=== PATIENT | female | born 1970 | race Caucasian/White ===

== ENCOUNTER 2022-02-21 14:13 | Emergency (ER) | payer BC ==
--- NOTE | 2022-02-21 14:52 | XRAY Report ---
PROCEDURE: Ankle 3 View LT INDICATIONS: Trauma TECHNIQUE: 3 views of the ankle were acquired. COMPARISON: None FINDINGS: Bones: No fractures or dislocations. Ankle mortise is normally aligned. No suspicious bony lesions . Soft tissues: No tibiotalar joint effusion. Achilles tendon appears normal. Amorphous soft tissue calcification noted in the mid Achilles tendon. Plantar and posterior calcaneal spur noted as well. IMPRESSION: 1. No evidence of fracture or foreign body 2. Amorphous calcification in the Achilles tendon may reflect prior injury or calcific tendinitis. 3. Calcaneal spurs Reviewed by: Max Sy MD on 02/21/2022 1:50 PM [facility] Approved by: Max Sy MD on 02/21/2022 1:50 PM [facility] Station ID: [id number]
--- NOTE | 2022-02-21 15:41 | ED Physician Documentation ---
History of Present Illness - Stated complaint Stated Complaint: L ANKLE INJ - Chief complaint Chief Complaint: Trauma Ext - History obtained from History obtained from: Patient - History of Present Illness Timing: Today Pain level max: 7 Pain level now: 5 - Additonal information Additional information: 51-year-old female was walking around [place] today when she excellently stepped in a hole. [place] a pop. Has pain in the posterior aspect of her calf near the Achilles insertion. Worse with movement, better with rest. Review of Systems Constitutional: denies: Fever Musculoskeletal: denies: Neck pain Neurologic: denies: Headache PD PAST MEDICAL HISTORY - Past Medical History Past Medical History: Yes Psych: Depression - Present Medications Home Medications: Ambulatory Orders Medication Instructions Recorded Confirmed Semaglutide [Ozempic] 1 mg SQ OAW 02/21/22 02/21/22 Venlafaxine ER [Effexor ER] 75 mg PO DAILY 02/21/22 02/21/22 - Allergies Allergies/Adverse Reactions: Allergies Allergy/AdvReac Type Severity Reaction Status Date / Time No Known Drug Allergies Allergy Verified 02/21/22 14:20 PD ED PE NORMAL - Vitals Vital signs reviewed: Yes - General General: Alert and oriented X 3, No acute distress, Well developed/nourished - HEENT HEENT: Moist mucous membranes - Neck Neck: Supple, no meningeal sign - Derm Derm: Warm and dry - Extremities Extremities: Other (No tenderness about the lateral or medial malleolus of the left ankle. There is slight tenderness along the Achilles tendon, the tendon appears intact on examination. Squeezing the calf results in downward flexion of the toes and foot. Neurovascular intact.) - Neuro Neuro: Alert and oriented X 3 - Psych Psych: Normal mood, Normal affect Results - Vitals Vitals: Vital Signs - 24 hr 02/21/22 02/21/22 14:16 15:54 Temperature 36.4 C L 36.7 C Heart Rate 88 78 Respiratory 16 20 Rate Blood Pressure 138/103 H 133/98 H O2 Saturation 97 94 Oxygen O2 Source Room air - Rads (name of study) Left ankle x-ray Radiology: Final report received, EMP read contemporaneously, See rad report Procedures - Splint (location) Left lower extremity Splint applied by: Physician, Tech Type of splint: Fiberglass, Short leg, Posterior Other: Patient tolerated well, No complications, Neurovascular intact, Crutches provided PD MEDICAL DECISION MAKING - ED course Complexity details: reviewed results, re-evaluated patient, considered differential, d/w patient ED course: 51-year-old female with what appears to be an Achilles tendon strain. Could be a partial tear as well. Placed in a short leg posterior splint and given crutches. Declines pain medication here or for home. Neurovascular intact. No acute findings on x-ray. Patient counseled regarding signs and symptoms for which I believe and urgent re-evaluation would be necessary. Patient with good understanding of and agreement to plan and is comfortable going home at this time This document was made in part using voice recognition software. While efforts are made to proofread this document, sound alike and grammatical errors may occur. IMPRESSION: 1. No evidence of fracture or foreign body 2. Amorphous calcification in the Achilles tendon may reflect prior injury or calcific tendinitis. 3. Calcaneal spurs Departure - Departure Disposition: Home, Self Care Clinical Impression: Strain of left Achilles tendon Qualifiers: Encounter type: initial encounter Qualified Code(s): S86.012A - Strain of left Achilles tendon, initial encounter Condition: Good Instructions: Achilles Tendonitis Follow-Up: Jennifer Peterson PA-C [Primary Care Provider] - [facility] [Provider Group] - Within 1 week Comments: You can use Motrin or Tylenol as needed for pain at home. Your x-ray does not s how any acute abnormalities. Stay in the splint until released by orthopedics. You could have an Achilles tendon strain versus partial tear. They may perform an MRI when the swelling has decreased depending on your exam. Return if you worsen Discharge Date/Time: 02/21/22 15:55
[2022-02-21 15:55] VITALS: BP 133/98
== END 2022-02-21 15:55 | disposition home or self-care (01) ==
LOC: ED 14:13
DX: S86.012A Strain of left Achilles tendon, initial encounter (principal); W18.42XA Slipping, tripping and stumbling without falling due to stepping into hole or opening, initial encounter; Y93.01 Activity, walking, marching and hiking; Y92.828 Other wilderness area as the place of occurrence of the external cause
CPT/HCPCS: 29515; 99282